=== PATIENT | female | born 1985 | race Caucasian/White ===

== ENCOUNTER → 2020-09-18 | Outpatient (CLI) | payer OTHER ==
[~2020-09-18] MED LIST: PRILOSEC OTC20 MG PO; ZANTAC150 MG PO
== END ==
LOC: US 08:50
DX: R10.9 Unspecified abdominal pain (principal)
CPT/HCPCS: 76700

== ENCOUNTER 2020-11-21 09:25 | Emergency (ER) | payer OTHER ==
[2020-11-21 11:46] LABS: BUN/CREATININE RATIO 16 (0-10)
== END 2020-11-21 12:50 | disposition home or self-care (01) ==
LOC: ER1 09:25
PROVIDERS: Physician Assistant
DX: O99.891 Other specified diseases and conditions complicating pregnancy (principal); M79.662 Pain in left lower leg; M79.672 Pain in left foot; M79.652 Pain in left thigh; O24.911 Unspecified diabetes mellitus in pregnancy, first trimester; Z3A.01 Less than 8 weeks gestation of pregnancy
CPT/HCPCS: 80048; 93926; 93971; 99284

== ENCOUNTER 2021-06-15 14:43 | Outpatient (CLI) | payer OTHER | END 2021-06-15 17:13 | disposition home or self-care (01) | LOC: GENOP 14:43 | DX: O47.03 False labor before 37 completed weeks of gestation, third trimester (principal); O99.891 Other specified diseases and conditions complicating pregnancy; O99.283 Endocrine, nutritional and metabolic diseases complicating pregnancy, third trimester; O99.353 Diseases of the nervous system complicating pregnancy, third trimester; O99.613 Diseases of the digestive system complicating pregnancy, third trimester; O36.0130 Maternal care for anti-D [Rh] antibodies, third trimester, not applicable or unspecified; G43.909 Migraine, unspecified, not intractable, without status migrainosus; E84.9 Cystic fibrosis, unspecified; N89.8 Other specified noninflammatory disorders of vagina; K90.0 Celiac disease; Z3A.35 35 weeks gestation of pregnancy | CPT/HCPCS: 81001; 83518; G0463 ==

== ENCOUNTER 2021-06-27 18:54 | Outpatient (CLI) | payer OTHER | END 2021-06-27 22:00 | disposition home or self-care (01) | LOC: GENOP 18:54 | DX: O47.1 False labor at or after 37 completed weeks of gestation (principal); O99.891 Other specified diseases and conditions complicating pregnancy; O36.0930 Maternal care for other rhesus isoimmunization, third trimester, not applicable or unspecified; O99.353 Diseases of the nervous system complicating pregnancy, third trimester; O26.853 Spotting complicating pregnancy, third trimester; M54.50 Low back pain, unspecified; Z3A.37 37 weeks gestation of pregnancy; G43.909 Migraine, unspecified, not intractable, without status migrainosus | CPT/HCPCS: 59025; 81001; 96360 ==

== ENCOUNTER 2021-07-09 05:38 | Inpatient (IN) | payer OTHER ==
[~2021-07-09] VITALS: Ht 157.5 cm; Wt 83.0 kg
[2021-07-09 07:15] LABS: HEMOGLOBIN 12.5 gm/dl (12.3-15.3); RED BLOOD COUNT 4.36 M/UL (4.00-5.10); WHITE BLOOD COUNT 11.2 K/UL (4.5-11.0)
[2021-07-09] MEDS ORDERED: PRENATAL TABLE1 EAC1 PO (07:31)
[2021-07-09] MEDS ORDERED: DOCUSATE SODIU100 MG PO (12:26)
[2021-07-09] MEDS ORDERED: HYDROCODON-ACE1 EAC4 PO (12:26)
[2021-07-09] MEDS ORDERED: IBUPROFEN600 MG PO (12:26)
[2021-07-10 06:43] LABS: HEMOGLOBIN 11.8 gm/dl (12.3-15.3)
== END 2021-07-10 14:26 | disposition home or self-care (01) | DRG 805 ==
LOC: OB 05:38
PROVIDERS: Obstetrics & Gynecology; ADMIT Obstetrics & Gynecology
PROC: 10E0XZZ Delivery of Products of Conception, External Approach (ICD-10-PCS; principal; 2021-07-09)
PROC: 10907ZC Drainage of Amniotic Fluid, Therapeutic from Products of Conception, Via Natural or Artificial Opening (ICD-10-PCS; 2021-07-09)
PROC: 3E033VJ Introduction of Other Hormone into Peripheral Vein, Percutaneous Approach (ICD-10-PCS; 2021-07-09)
PROC: 10H07YZ Insertion of Other Device into Products of Conception, Via Natural or Artificial Opening (ICD-10-PCS; 2021-07-09)
PROC: 4A1H7CZ Monitoring of Products of Conception, Cardiac Rate, Via Natural or Artificial Opening (ICD-10-PCS; 2021-07-09)
PROC: 10H073Z Insertion of Monitoring Electrode into Products of Conception, Via Natural or Artificial Opening (ICD-10-PCS; 2021-07-09)
PROC: 0HQ9XZZ Repair Perineum Skin, External Approach (ICD-10-PCS; 2021-07-09)
PROC: 8E0ZXY6 Isolation (ICD-10-PCS; 2021-07-09)
DX: O99.344 Other mental disorders complicating childbirth (principal); U07.1 COVID-19; Z37.0 Single live birth; O98.52 Other viral diseases complicating childbirth; O99.354 Diseases of the nervous system complicating childbirth; F32.A Depression, unspecified; G43.909 Migraine, unspecified, not intractable, without status migrainosus; O70.0 First degree perineal laceration during delivery; O99.334 Smoking (tobacco) complicating childbirth; F17.200 Nicotine dependence, unspecified, uncomplicated; O99.214 Obesity complicating childbirth; E66.9 Obesity, unspecified; Z3A.39 39 weeks gestation of pregnancy; Z14.1 Cystic fibrosis carrier; Z82.49 Family history of ischemic heart disease and other diseases of the circulatory system; Z83.3 Family history of diabetes mellitus; Z28.21 Immunization not carried out because of patient refusal
CPT/HCPCS: 36415; 81001; 82800; 82962; 85014; 85018; 85025; 86900; 86901; J2590; J7030